=== PATIENT | female | born 1975 | race Caucasian/White ===

== ENCOUNTER 2022-08-13 10:04 | Emergency (ER) | payer OTHER, SELFPAY ==
[2022-08-13 10:27] VITALS: BP 164/86; PULSE 75; RESP 18; TEMP 37; O2SAT 96; BMI 25.0
[2022-08-13 10:59] VITALS: BP 148/85; PULSE 69; RESP 17; TEMP 36.6; O2SAT 96
--- NOTE | 2022-08-13 11:09 | PC.NURSE ---
Pt reporting x5 days of MS flare-up, reporting normal home clinic not available. Bilat legs feel heavy, and like they are tremoring, however no tremor noted. Irregular vaginal bleeding noted as well.
--- NOTE | 2022-08-13 11:47 | ED.GENADULT ---
HPI - General Adult General Chief complaint: General Medical Stated complaint: MS flair up? Time Seen by Provider: 08/13/22 11:47 Source: patient and family (mother) Mode of arrival: ambulatory Limitations: no limitations History of Present Illness HPI narrative: Patient is a 47 year old assigned female at with a history of MS and anxiety presenting to the emergency department today with multiple complaints. Patient states that since April of 2022, she has been having increased uterine bleeding. Patient [facility]. Patient states that the results are in her portal but she has not had them explained to her. Patient states that waiting for the results as made her very anxious. Patient states that her PCP started her on Hydroxyzine, then stopped it and started her on proproanolol but that made the patient sick. Patient states she would prefer to take the Hydroxyzine. Patient states that since all this anxiety has started, she has begun having an MS flare with weakness in her legs and tingling in her extremities. Patient states that the last time this happened was 5 years ago and she was given solu-medrol at that time which helped. Patient denies any dizziness, lightheadedness, abdominal pain, nausea, vomiting, fever, chills, blurry vision, double vision, loss of vision, chest pain, difficulty breathing, shortness of breath, back pain, night sweats, pain with urination, increased urinary frequency, increased urinary urgency, blood in her urine or stool, syncope or a near syncopal episode, recent trauma or falls, bowel incontinence, bladder incontinence, bowel retention, bladder retention, or any other complaints at this time. Onset (ago): month(s) (5) Relieving factors: none Exacerbating factors: none Treatments prior to arrival: none Related Data Previous Rx's Medication Instructions Recorded hydroxyzine HCl 25 mg tablet 25 mg PO TID PRN anxiety #14 tabs 08/13/22 methylprednisolone 4 mg tablets in 4 mg PO DAILY #21 ea 08/13/22 a dose pack Allergies Allergy/AdvReac Type Severity Reaction Status Date / Time iodine [IODINE] Allergy Unknown UNKNOWN Verified 08/13/22 10:33 povidone-iodine Allergy Unknown UNKNOWN Verified 08/13/22 10:33 [From BETADINE] soap [From BETADINE] Allergy Unknown UNKNOWN Verified 08/13/22 10:33 TEGADERM Allergy Unknown UNKNOWN Uncoded 01/18/20 19:34 Review of Systems Constitutional: Constitutional: Reports no additional constitutional complaints, Denies chills, Denies fever(s) and Denies night sweats Eyes: Eyes: Reports no additional eye complaints, Denies blurry vision, Denies change in vision, Denies diplopia, Denies eye discharge, Denies loss of vision and Denies eye pain ENT: Denies dizziness Cardiovascular: Cardiovascular: Reports no additional cardiovascular complaints, Denies chest pain, Denies lightheadedness, Denies Loss of Consciousness and Denies dyspnea Respiratory: Respiratory: Reports no additional respiratory complaints and Denies dyspnea Gastrointestinal: Gastrointestinal: Reports no additional gastrointestinal complaints, Denies abdominal pain, Denies melena, Denies hematochezia, Denies change in bowel habits and Denies change in stool character Genitourinary: Genitourinary: Denies hematuria, Denies urinary frequency, Denies dysuria, Denies urinary incontinence, Denies urinary hesitancy and Denies urinary urgency Comments: increased vaginal bleeding Musculoskeletal: Musculoskeletal: Reports no additional musculoskeletal complaints, Denies numbness and Reports tingling Neurologic: Denies dizziness, Denies loss of vision, Denies numbness, Reports tingling and Reports paresthesias Psychiatric: Psychiatric: Reports no additional psychiatric complaints Endocrine: Endocrine: Reports no additional endocrine complaints Hematologic/Lymphatic: Hematologic/Lymphatic: Reports no additional hematologic/lymphatic complaints Allergic/Immunologic: Allergic/Immunologic: Reports no additional allergic/immunologic complaints PMFSH Past Medical History Attestation statement: The following information was validated with the patient. Source: old records reviewed, obtained from family (patient's mother at bed side) and nursing notes reviewed Social History Social History Smoked in Last 30 Days: Yes Advance Directives: No Physical Exam ED Vital Signs: Vital Signs - 24 hr 08/13/22 10:27 08/13/22 10:59 08/13/22 12:13 Temperature 98.6 F 97.8 F Pulse Rate 75 69 69 Respiratory Rate 18 17 20 Blood Pressure 164/86 H 148/85 H 144/93 H Pulse Oximetry 96 96 96 Oxygen Delivery Method Room Air Room Air Room Air BMI result Body Mass Index 25.0 Const General: cooperative, no acute distress, alert and awake Nutritional Appearance: well nourished Orientation/consciousness: patient oriented x3 Limitations: no limitations HENMT Head: Yes normal to inspection and Yes atraumatic Ears: hearing grossly normal bilaterally and external ears normal General nose exam: Normal external nose present, no nasal discharge noted and no epistaxis Face and sinus: Yes normal facial exam, No abrasion and No laceration Mouth: Normal oral and palatal mucosa present, no drooling and no muffled voice Eyes General: appearance normal, both eyes and all related structures Periorbital: periorbital findings normal Eyelids: Yes eyelids normal Conjunctivae: conjunctivae normal Pupils: Equal, round and reactive pupils present EOM: EOMs intact bilaterally Neck Neck: Yes normal visual inspection, Yes full ROM and Yes no lymphadenopathy Chest Chest palpation & inspection: normal inspection of the chest Resp Effort & Inspection: normal respiratory effort and able to speak in complete sentences GI Inspection: Yes normal to inspection Palpation (GI): no guarding Neuro General: patient oriented x3 and moves all extremities Cranial nerves: Yes Equal, round and reactive pupils present Cognition (Neuro): normal cognition Motor exam (neuro): 5/5 motor strength present throughout Sensory Exam: Normal double simultaneous stimulation for sensation Coordination: [id number] test normal Extrem General: Yes normal to inspection, Yes full ROM and Yes capillary refill normal Psych Appearance: grossly normal Mental Status: mental status grossly normal Affect: normal affect Attitude: cooperative Thought process: Normal thought process present Thought content: Normal thought content present Insight: Good insight present (Psych) Medications Administered Discontinued Medications Generic Name Dose Route Start Last Admin Trade Name Freq PRN Reason Stop Dose Admin Methylprednisolone Sodium Succinate 60 mg 08/13/22 12:04 08/13/22 12:10 Methylprednisolone Sod Succ 125 Mg/2 Ml Vial IM 08/13/22 12:05 60 mg ONCE ONE Administration Medical Decision Making Medical Decision Making [facility] Narrative: Patient is a 47 year old assigned female at with a history of MS and anxiety presenting to the emergency department today with multiple complaints as detailed in the HPI. Patient's physical exam was unremarkable. Patient showed me her endometrial biopsy report which detailed no atypia or dysplasia. I explained what these terms mean to the patient and her mother but specified that they need to follow up with the OBGYN. Patient was given IM Solu-Medrol while in the department. I explained my physical exam findings to the patient and the patient's mother. I answered all questions asked by the patient and the patient's mother. I stressed the importance of the patient taking her medication as prescribed. I stressed the importance of the patient following up with her primary care provider, OBGYN, MS clinic, and a psychiatrist. I stressed the importance of the patient returning to the emergency department immediately if her symptoms were to worsen or if she were to develop any dizziness, shortness of breath, difficulty breathing, chest pain, blurry vision, loss of vision, nausea, vomiting, abdominal pain, fever, chills, back pain, or any other complaints. Patient and the patient's mother verbalized agreement and understanding with this treatment plan and discharge. Differential Diagnosis Differential Diagnoses: The differential diagnosis associated with the presentation includes MS flare, uterine bleeding Discharge Plan Discharge Clinical Impression: Multiple sclerosis, Anxiety, Abnormal uterine bleeding Patient Disposition: Home, Self-Care Instructions: Multiple Sclerosis (DC), Menorrhagia (ED), Anxiety (ED) Additional Instructions: Follow up with your primary care provider, your OBGYN, your MS clinic, and a psychiatrist. Return to the emergency department immediately if your symptoms worsen or if you develop any dizziness, shortness of breath, difficulty breathing, chest pain, blurry vision, loss of vision, nausea, vomiting, abdominal pain, fever, chills, back pain, or any other complaints. [facility] ([facility]) at [facility]: [address] [place] [id number] Open from 10am - 12pm [facility] Crisis Services: [address] [place] [id number] Open 23/11 Behavioral [facility]: [address] [place] [id number] [address] [place] [id number] Hours: M-F 8am to 8pm Wednesday and Wednesday 9am to 5pm Prescriptions: New methylprednisolone 4 mg tablets,dose pack 4 mg PO DAILY Qty: 21 0RF hydroxyzine HCl 25 mg tablet 25 mg PO TID PRN (Reason: anxiety) Qty: 14 0RF Referrals: Kim Singh NP [Primary Care Provider] - Interventions: ED Discharge Assessment Last Done: 08/13/22 12:15 Discharge Date/Time: 08/13/22 12:16 Print Language: Kittitian
[2022-08-13] MEDS: methylPREDNISolone Sod Succ 125 MG/2 ML VIAL 60 MG IM (12:10)
[2022-08-13 12:13] VITALS: BP 144/93; PULSE 69; RESP 20; O2SAT 96
== END 2022-08-13 12:16 | disposition home or self-care (01) ==
PROVIDERS: Emergency Provider Emergency Medicine; PCP Nurse Practitioner Family
DX: G35 Multiple sclerosis (principal); F41.1 Generalized anxiety disorder; F43.0 Acute stress reaction; N93.8 Other specified abnormal uterine and vaginal bleeding; Z79.899 Other long term (current) drug therapy
CPT/HCPCS: 96372; 99284; J2930

== ENCOUNTER 2022-10-01 19:07 | Emergency (ER) | payer OTHER, SELFPAY ==
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
[2022-10-01 19:46] VITALS: BP 168/94; PULSE 82; RESP 20; TEMP 36.6; O2SAT 98; BMI 25.8
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
[2022-10-01] MEDS: Butalb/Acetamin/Caff 50/325/40 TABLET 1 TAB PO (21:41)
[2022-10-01 23:02] VITALS: BP 152/86; PULSE 77; RESP 18; O2SAT 97
== END 2022-10-01 23:23 | disposition home or self-care (01) ==
PROVIDERS: Emergency Provider Internal Medicine
DX: S00.12XA Contusion of left eyelid and periocular area, initial encounter (principal); R51.9 Headache, unspecified; Y04.2XXA Assault by strike against or bumped into by another person, initial encounter; Y93.9 Activity, unspecified; Y92.009 Unspecified place in unspecified non-institutional (private) residence as the place of occurrence of the external cause; Y99.9 Unspecified external cause status; Z79.899 Other long term (current) drug therapy
CPT/HCPCS: 70450; 70486; 99284

== ENCOUNTER 2023-04-15 10:31 | Emergency (ER) | payer OTHER, SELFPAY ==
--- NOTE | ~2023-04-15 | XR_ITS ---
EXAMINATION: XR LUMBAR SPINE. XR SACRUM/COCCYX. CLINICAL INFORMATION: Left back and buttock pain COMPARISON: None. TECHNIQUE: 3 views of the lumbar spine. 3 views of the sacrum and coccyx. FINDINGS: Normal alignment of the lumbosacral spine. Mild to moderate multilevel degenerative disc disease with disc space narrowing and anterior endplate osteophytes. No fracture. Sacroiliac joints are unremarkable. Normal alignment of the sacrum and coccyx. XR/XR sacrum coccyx min 2V IMPRESSION: Mild to moderate multilevel degenerative disc disease. No acute abnormality. Normal alignment of the lumbar spine, sacrum and coccyx. There is an 8 mm round density approximately 1 cm posterior to the sacrococcygeal junction of uncertain etiology. This has the appearance of an ossification although not acute. This could be due to a remote injury or perhaps fat necrosis of the overlying soft tissues. This is seen on the lateral view only. Correlate for point tenderness in this location. If further imaging evaluation is desired, a CT could be considered.
--- NOTE | ~2023-04-15 | XR_ITS ---
EXAMINATION: XR LUMBAR SPINE. XR SACRUM/COCCYX. CLINICAL INFORMATION: Left back and buttock pain COMPARISON: None. TECHNIQUE: 3 views of the lumbar spine. 3 views of the sacrum and coccyx. FINDINGS: Normal alignment of the lumbosacral spine. Mild to moderate multilevel degenerative disc disease with disc space narrowing and anterior endplate osteophytes. No fracture. Sacroiliac joints are unremarkable. Normal alignment of the sacrum and coccyx. XR/XR lumbar spine 2-3V IMPRESSION: Mild to moderate multilevel degenerative disc disease. No acute abnormality. Normal alignment of the lumbar spine, sacrum and coccyx. There is an 8 mm round density approximately 1 cm posterior to the sacrococcygeal junction of uncertain etiology. This has the appearance of an ossification although not acute. This could be due to a remote injury or perhaps fat necrosis of the overlying soft tissues. This is seen on the lateral view only. Correlate for point tenderness in this location. If further imaging evaluation is desired, a CT could be considered.
[2023-04-15 10:40] VITALS: BP 150/77; PULSE 63; RESP 20; TEMP 36.4; O2SAT 100; BMI 26.0
--- NOTE | 2023-04-15 12:08 | ED.BACK ---
HPI - Back Pain/Injury General Chief Complaint: Back Pain/Injury Stated Complaint: back pain Time Seen by Provider: 04/15/23 11:34 Source: patient Mode of arrival: ambulatory Limitations: no limitations History of Present Illness HPI Narrative: 48 year old female with pmhx significant for multiple sclerosis, cervical disc herniation, and sciatic presents to the ED today for evaluation of low back/buttock pain. Pain originates in her left buttock area and radiates down her left leg to her calf. She endorses paresthesias into her left foot when she moves her left leg. Admits to starting a job at [employer] 3 months ago where she is up and walking a majority of the day. States this may be contributing to her worsening back/buttock pain. Admits to being seen at urgent care 5 days ago where she was prescribed cyclobenzaprine which she has been taking without relief of pain. States she has had symptoms similar in the past when she was diagnosed with sciatica. Completed physical therapy for this. Denies recent trauma/injury/fall. Denies fever/chills, saddle anesthesia, bowel or bladder incontinence or retention. Denies IV drug use. Related Data Previous Rx's Medication Instructions Recorded hydroxyzine HCl 25 mg tablet 25 mg PO TID PRN anxiety #14 tabs 08/13/22 methylprednisolone 4 mg tablets in 4 mg PO DAILY #21 ea 08/13/22 a dose pack baclofen 5 mg tablet 5 mg PO BID PRN muscle spasm #10 04/15/23 tabs ibuprofen 600 mg tablet 600 mg PO Q6-8H PRN pain (scale 04/15/23 score 4-6) #20 tabs lidocaine 5 % topical patch 1 patch topical DAILY #15 ea 04/15/23 (Lidoderm) Allergies Allergy/AdvReac Type Severity Reaction Status Date / Time iodine [IODINE] Allergy Unknown UNKNOWN Verified 10/01/22 19:52 povidone-iodine Allergy Unknown UNKNOWN Verified 10/01/22 19:52 [From BETADINE] soap [From BETADINE] Allergy Unknown UNKNOWN Verified 10/01/22 19:52 TEGADERM Allergy Unknown UNKNOWN Uncoded 01/18/20 19:34 Review of Systems Review of Systems: Constitutional: No fever, chills, fatigue, night sweats, weight changes ENT/Mouth: No ear pain, hearing loss, nasal congestion, sinus pain, rhinorrhea, sore throat Eyes: No eye pain, swelling, redness, vision changes, discharge Cardio: No chest pain, palpitations, CANALES, orthopnea, peripheral edema Pulm: No SOB, cough, sputum, wheezing, dyspnea, hemoptysis GI: No nausea, vomiting, hematemesis, abdominal pain, diarrhea, constipation, hematochezia, melena : No irregular bleeding, dysuria, frequency, urgency, hesitancy, hematuria, flank pain, urinary flow changes, urinary incontinence or retention MSK: +low back/buttock pain, neck pain, joint pain, myalgias Skin: No lesions, rashes Neuro: No weakness, numbness, paresthesias, LOC, dizziness, headache All other systems reviewed and are negative. [facility] Past Medical History Attestation statement: The following information was validated with the patient. Source: old records reviewed and nursing notes reviewed Social History Social History Smoked in Last 30 Days: No Use of substances other than those prescribed or required for medical reasons: No Advance Directives: No Patient : No Physical Exam Vital Signs: Vital Signs: Last Vital Signs Temp 97.5 F 04/15/23 10:40 Pulse 63 04/15/23 10:40 Resp 20 04/15/23 10:40 BP 150/77 H 04/15/23 10:40 Pulse Ox 100 04/15/23 10:40 O2 Del Method Room Air 04/15/23 10:40 BMI result Body Mass Index 26.0 Vital signs stable Const: Other: + visibly uncomfortable when going from lying to sitting General: cooperative, healthy appearing, no acute distress, alert and awake Orientation/consciousness: patient oriented x3 Limitations: no limitations HEENT: Head: Yes normal to inspection Ears: hearing grossly normal bilaterally Eyes: General: appearance normal, both eyes and all related structures Conjunctivae: conjunctivae normal Sclerae: sclerae normal Pupils: Equal, round and reactive pupils present Neck: Neck: Yes normal visual inspection, Yes full ROM, Yes no lymphadenopathy and Yes no meningeal signs Resp: Effort & Inspection: normal respiratory effort and able to speak in complete sentences Auscultation: clear to auscultation bilaterally Cardio: Rate: regular rate Rhythm: regular rhythm Peripheral pulses: posterior tibial pulses present and dorsalis pedis present : General: Yes no CVA tenderness Back/Spine/Pelvis: Other: No midline spinous tenderness. No paraspinal muscle tenderness. No step off deformity. Back: no CVA tenderness Skin: General skin exam: no rashes or lesions noted Neuro: Other: Strength 5/5 intact throughout.? No saddle anesthesia.? Sensation intact to light touch. Neurovascular intact distally.? + tenderness extending from the left lateral buttock down into the lateral left thigh. No palpable masses or deformity. + positive straight leg raise of right leg inducing pain to left lower back. + ambulating with steady gait General: patient oriented x3, gait normal, moves all extremities and no meningeal signs Cranial nerves: Yes CN's II-XII intact bilaterally and Yes Equal, round and reactive pupils present Extrem: Other: + tenderness extending from the left lateral buttock down into the lateral left thigh. No palpable masses or deformity. Positive straight leg raise of right leg inducing pain to left lower back. Ambulating with steady gait. Full ROM intact to left hip. General: Yes normal to inspection, Yes full ROM and Yes no calf tenderness Course Course Course Narrative: 1530-- X-ray lumbar spine, coccyx, sacrum showing mild to moderate multilevel degenerative disc disease. No acute fracture or subluxation. There is an incidental finding of an 8 mm round density approximately 1 cm posterior to the sacrococcygeal junction of unknown etiology. There is an appearance of an ossification however not acute. This may be contributed to a remote injury or ? Fat necrosis overlying soft tissues. Radiologist recommends correlation with point tenderness and possible evaluation with CT. I discussed these imaging findings with my attending physician Dr. Catalan who agrees that this may be followed up outpatient. > informed patient of imaging results. She is aware of her degenerative disc disease. I informed her of the incidental finding. She was not aware of this. I informed her that this warrants further workup outpatient. She should follow up with her primary care provider or orthopedic doctor. She verbalizes understanding. There is no point tenderness over her sacrum or coccyx and I do not believe that this finding is contributing to her current symptoms. She is ambulating with steady gait in the emergency department. Patient has remained stable throughout ED visit today. Discussed strict return precautions. All questions answered at this time. Patient is agreeable with disposition and stable for discharge. Medications Administered Discontinued Medications Generic Name Dose Route Start Last Admin Trade Name Freq PRN Reason Stop Dose Admin Baclofen 10 mg 04/15/23 12:33 04/15/23 13:07 Baclofen 10 Mg Tablet PO 04/15/23 12:34 10 mg ONCE ONE Administration Ketorolac Tromethamine 30 mg 04/15/23 12:33 04/15/23 13:07 Ketorolac Tromethamine 30 Mg/Ml Vial IM 04/15/23 12:34 30 mg ONCE ONE Administration Lidocaine 1 patch 04/15/23 12:33 04/15/23 13:07 Lidocaine 4 % Patch Adh..Patch TRANSDERMA 04/15/23 12:34 1 patch ONCE ONE Administration Protocol Medical Decision Making Medical Decision Making MDM Narrative: 48 year old female with pmhx significant for multiple sclerosis, cervical disc herniation, and sciatic presents to the ED today for evaluation of low back/buttock pain. Vital signs stable. She is nontoxic appearing and in no acute distress. Lungs CTA bilaterally. On exam, there is tenderness extending from the left lateral buttock down into the lateral left thigh. No palpable masses or deformity. Positive straight leg raise of right leg inducing pain to left lower back. Ambulating with steady gait. No midline spinous tenderness. No paraspinal muscle tenderness bilaterally. No step-off deformity. Ambulating with steady gait. Clinical concern for MSK sprain/strain, disc herniation, sciatica, lumbar radiculopathy, fracture, subluxation, acute on chronic multiple sclerosis. Unlikely cauda equina, cord compression, epidural abscess, Guillain-[place]. Plan for x-rays, pain control and re-evaluation. Differential Diagnosis Differential Diagnoses: The differential diagnosis associated with the presentation includes as above. Admission/Observation not indicated. Independent Interpretation I performed an independent interpretation of an: Plain X-Ray Interpretation: X-ray lumbar spine, sacrum, coccyx without acute fracture, agree with radiologist's interpretation. Radiology Impression Discussion of test interpretation with radiology: I have reviewed the radiologist's reading. Radiologist Impression: XR lumbar spine/sacrum/coccyx 2-3V IMPRESSION: Mild to moderate multilevel degenerative disc disease. No acute abnormality. Normal alignment of the lumbar spine, sacrum and coccyx. There is an 8 mm round density approximately 1 cm posterior to the sacrococcygeal junction of uncertain etiology. This has the appearance of an ossification although not acute. This could be due to a remote injury or perhaps fat necrosis of the overlying soft tissues. This is seen on the lateral view only. Correlate for point tenderness in this location. If further imaging evaluation is desired, a CT could be considered. Independent Historian Clinical information obtained from an independent historian. History obtained from or confirmed by: Parent (mom) External Record Review External record reviewed: Inpatient record Tests considered The following testing was considered but not selected: I considered obtaining a CT of the lumbar spine however there is no point tenderness over the sacrum/coccyx and this is likely not contributing to her present symptoms. Not warranted at this time. Prescription Management I considered prescription management with: Pain Medication Chronic Conditions Patient?s care impacted by: Other (Multiple sclerosis) Critical Care Time Critical Care Time Critical Care Time: No Discharge Plan Discharge Clinical Impression: Sciatic nerve pain, Multilevel degenerative disc disease Patient Disposition: Home, Self-Care Instructions: Sciatica (ED) Additional Instructions: The x-ray of your low back shows chronic degenerative changes within the discs. The x-ray of your sacrum and coccyx shows an 8 mm round density behind the sacrococcygeal junction. You do not have point tenderness in this area this is likely not the cause of your current symptoms. You will need to follow-up with either your primary care doctor or an orthopedic doctor regarding this finding as it may warrant further workup. Your symptoms today are consistent with sciatica. You received baclofen in the emergency department today. This is a muscle relaxer that will be sent to your pharmacy. Stop taking the cyclobenzaprine that was prescribed to you and do not take this with the baclofen. Lidocaine patches have been sent to her pharmacy. You may apply these to your left buttock/hip to numb the area and reduce pain. Ibuprofen has also been sent to your pharmacy. You may take this every 6-8 hours as needed for pain/discomfort. Continue taking prednisone at home prescribed to by urgent care. We also recommend physical therapy. You state that you would like to contact your old physical therapy office. Additionally you have been provided a referral to pain management. You may call them to make an appointment. They will not call you. If symptoms persist or worsen please return to the emergency department. The case of an emergency call 911. Prescriptions: New baclofen 5 mg tablet 5 mg PO BID PRN (Reason: muscle spasm) Qty: 10 0RF lidocaine [Lidoderm] 5 % adhesive patch,medicated 1 patch topical DAILY Qty: 15 0RF Rx Instructions: leave on most painful area for up to 12 hrs ibuprofen 600 mg tablet 600 mg PO Q6-8H PRN (Reason: pain (scale score 4-6)) Qty: 20 0RF No Action methylprednisolone 4 mg tablets,dose pack 4 mg PO DAILY Qty: 21 0RF hydroxyzine HCl 25 mg tablet 25 mg PO TID PRN (Reason: anxiety) Qty: 14 0RF Referrals: [facility] [Provider Group] [facility] [Provider Group] Stand Alone Forms: Work/School Release Interventions: ED Discharge Assessment Last Done: 04/15/23 16:24 Discharge Date/Time: 04/15/23 16:24
[2023-04-15] MEDS: Lidocaine 4 % Patch ADH..PATCH 1 PATCH TRANSDERMA (13:07)
[2023-04-15] MEDS: Baclofen 10 MG TABLET PO (13:07)
[2023-04-15] MEDS: Ketorolac Tromethamine 30 MG/ML VIAL IM (13:07)
== END 2023-04-15 16:24 | disposition home or self-care (01) ==
PROVIDERS: Emergency Provider Student in an Organized Health Care Education/Training Program; PCP Nurse Practitioner Family
DX: M51.17 Intervertebral disc disorders with radiculopathy, lumbosacral region (principal); Z79.899 Other long term (current) drug therapy
CPT/HCPCS: 72100; 72220; 96372; 99284; J1885